=== PATIENT | male | born 1965 | race Caucasian/White ===

== ENCOUNTER 2016-07-16 17:32 | Emergency (ER) | payer BC ==
[2016-07-16] MEDS ORDERED: HYDROmorphone 1 MG/ML Syringe IVPUSH ONE ×2 (17:54→18:17)
[2016-07-16] MEDS ORDERED: Sodium Chloride 0.9% 10 ML Syringe FLUSH PRN (17:54)
--- NOTE | 2016-07-16 17:55 | EDM.PDOC ---
ED HPI GENERAL MEDICAL PROBLEM - General Chief Complaint: Lower Extremity Injury/Pain Stated Complaint: Left leg pain Time Seen by Provider: 07/16/16 17:45 Source of Information: Reports: Patient, RN Notes Reviewed History Limitations: Reports: No Limitations - History of Present Illness INITIAL COMMENTS - FREE TEXT/NARRATIVE: 51 year old male presents to the ED with sudden onset of severe left calf pain that came on suddenly about 45-60 minutes prior to arrival. His left foot is pale and cold. This is a recurrent problem for him. His last episode was in January of 2016 and the patient says "They saved my leg by 10 minutes." His CV surgeon is Dr. Morrow. Patient has a history of PVD and continues to smoke cigarettes. Left Lower Leg Pain Score (Numeric/FACES): 10 - Related Data Allergies Allergy/AdvReac Type Severity Reaction Status Date / Time amoxicillin Allergy Hives Verified 07/16/16 17:47 venom-honey bee Allergy Anaphylactic Verified 07/16/16 17:47 [bee venom (honey bee)] Shock Home Meds: Home Meds Chlorthalidone 25 mg PO DAILY 01/28/15 [History] Cyclobenzaprine [Flexeril] 10 mg PO DAILY PRN 01/28/15 [History] Enalapril [Vasotec] 40 mg PO DAILY 01/28/15 [History] FLUoxetine [PROzac] 40 mg PO DAILY 01/28/15 [History] Clopidogrel [Plavix] 75 mg PO DAILY 03/22/15 [History] oxyCODONE HCl/Acetaminophen [oxyCODONE-Acetaminophen 5-325] 1 tab PO Q6HR PRN [History] Past Medical History Cardiovascular History: Reports: Blood Clots/VTE/DVT, Hypertension, Other (See Below) Other Cardiovascular History: arterial blood clot to the left leg in January Musculoskeletal History: Reports: Other (See Below) Other Musculoskeletal History: left shoulder pain Psychiatric History: Reports: Anxiety Other Endocrine/Metabolic History: pt states that he is borderline diabetic - Infectious Disease History Infectious Disease History: Reports: Chicken Pox, Measles - Past Surgical History Cardiovascular Surgical History: Reports: Other (See Below) Other Cardiovascular Surgeries/Procedures: filter Social & Family History - Tobacco Use Smoking Status *Q: Former Smoker Years of Tobacco use: 30 Packs/Tins Daily: 1 Used Tobacco, but Quit: Yes Month Tobacco Last Used: 2014 - Caffeine Use Caffeine Use: Reports: None - Recreational Drug Use Recreational Drug Use: No ED ROS GENERAL - Review of Systems Review Of Systems: See Below Respiratory: Denies: Shortness of Breath Cardiovascular: Reports: Other (pulseless left leg). Denies: Chest Pain Musculoskeletal: Reports: Leg Pain Skin: Reports: Pallor ED EXAM, GENERAL - Physical Exam Exam: See Below Exam Limited By: No Limitations General Appearance: Alert, WD/WN, Anxious, Severe Distress Respiratory/Chest: No Respiratory Distress, Lungs Clear Cardiovascular: Tachycardia, Other (pale, cold, pulseless left lower leg. pedal pulses are not present by doppler) Extremities: Leg Pain, Pallor Course - Vital Signs Last Recorded V/S: Last Vital Signs Temp 96.4 F 07/16/16 17:40 Pulse 110 H 07/16/16 17:40 Resp 35 H 07/16/16 17:40 BP 166/126 H 07/16/16 17:40 Pulse Ox 100 07/16/16 17:40 - Orders/Labs/Meds Orders: Active Orders 24 hr Category Date Time Status Peripheral IV Care [RC] . DIRECTED Care 07/16/16 17:55 Active Heparin Sodium/D5W [Heparin 25,000 Units in D5W 500 ML] Med 07/16/16 18:15 Active 25,000 units in 500 ml IV TITRATE Sodium Chloride 0.9% [Saline Flush] Med 07/16/16 17:54 Active 10 ml FLUSH ASDIRECTED PRN Peripheral IV Insertion Adult [OM.PC] Stat Oth 07/16/16 17:54 Ordered Medication Orders Heparin Sodium/Dextrose (Heparin 25,000 Units In D5w 500 Ml) 25,000 units in 500 mls @ 20 mls/hr IV TITRATE GANGA; 1,000 UNITS/HR PRN Reason: Protocol Sodium Chloride (Saline Flush) 10 ml FLUSH ASDIRECTED PRN PRN Reason: Keep Vein Open Last Admin: 07/16/16 18:04 Dose: 10 ml Labs: Laboratory Tests 07/16/16 07/16/16 07/16/16 Range/Units 18:00 18:00 18:00 WBC 11.40 H (4.23-9.07) K/mm3 RBC 4.97 (4.63-6.08) M/mm3 Hgb 17.0 (13.7-17.5) gm/L Hct 43.7 (40.1-51.0) % MCV 87.9 (79.0-92.2) fl MCH 34.2 H (25.7-32.2) pg MCHC 38.9 H (32.2-35.5) g/dl RDW Std Deviation 37.9 (35.1-43.9) fL Plt Count 311 (163-337) K/mm3 MPV 10.1 (9.4-12.3) fl Neut % (Auto) 60.5 (34.0-67.9) % Lymph % (Auto) 28.9 (21.8-53.1) % [place] % (Auto) 7.8 (5.3-12.2) % Eos % (Auto) 1.5 (0.8-7.0) Baso % (Auto) 1.0 (0.1-1.2) % Neut # (Auto) 6.91 H (1.78-5.38) K/mm3 Lymph # (Auto) 3.29 (1.32-3.57) K/mm3 [place] # (Auto) 0.89 H (0.30-0.82) K/mm3 Eos # (Auto) 0.17 (0.04-0.54) K/mm3 Baso # (Auto) 0.11 H (0.01-0.08) K/mm3 Manual Slide Review Normal smear PT 11.3 (8.0-13.0) SECONDS INR 1.03 APTT 27 (22-36) SECONDS Meds: Medications Generic Name Dose Route Start Last Admin Trade Name Freq PRN Reason Stop Dose Admin Heparin Sodium/Dextrose 25,000 units in 500 mls @ 20 mls/hr 07/16/16 18:15 Heparin 25,000 Units In D5w 500 Ml IV TITRATE GANGA Protocol 1,000 UNITS/HR Sodium Chloride 10 ml 07/16/16 17:54 07/16/16 18:04 Saline Flush FLUSH 10 ml ASDIRECTED PRN Administration Keep Vein Open Discontinued Medications Generic Name Dose Route Start Last Admin Trade Name Freq PRN Reason Stop Dose Admin Heparin Sodium (Porcine) 5,000 units 07/16/16 18:22 07/16/16 18:23 Heparin Sodium IVPUSH 07/16/16 18:23 5,000 units ONETIME ONE Administration Heparin Sodium (Porcine) Confirm 07/16/16 18:24 07/16/16 18:29 Heparin Sodium Administered 07/16/16 18:25 Not Given Dose 5,000 units .ROUTE .STK-MED ONE Hydromorphone HCl 1 mg 07/16/16 17:54 07/16/16 18:03 Dilaudid IVPUSH 07/16/16 17:55 1 mg ONETIME ONE Administration Hydromorphone HCl 1 mg 07/16/16 18:17 07/16/16 18:22 Dilaudid IVPUSH 07/16/16 18:18 1 mg ONETIME ONE Administration - Re-Assessments/Exams Free Text/Narrative Re-Assessment/Exam: [address] [facility]. I spoke to Dr. Hernandez CV surgeon delinquency prevention officer for Dr. Morrow. He would like him sent through the ED. I then spoke to Dr. Escobar who has accepted patient. Dr. Escobar recommends we initiate heparin. Spoke to Dr. Padilla who agrees. Will start with 5000unit bolus then 1000 u/hr infusion. A second IV will be placed. Pain has been treated with Dilaudid. [facility] also notified interventional radiology team. [email or web address] was called but they do not have a crew available. [facility] flight crew was then called. They will be here promptly to transfer the patient. Departure - Departure Time of Disposition: 18:26 Disposition: DC/Tfer to [facility] 02 Reason for Transfer *Q: Primary PCI Indicated Condition: serious Clinical Impression: Peripheral vascular disease, Left leg pain, Absent pulse in lower extremity Referrals: Aleksandar De Anda MD [Primary Care Provider] - Forms: ED Department Discharge - My Orders Last 24 Hours: My Active Orders 07/16/16 17:54 Sodium Chloride 0.9% [Saline Flush] 10 ml FLUSH ASDIRECTED PRN Peripheral IV Insertion Adult [OM.PC] Stat 07/16/16 17:55 Peripheral IV Care [RC] . DIRECTED 07/16/16 18:15 Heparin Sodium/D5W [Heparin 25,000 Units in D5W 500 ML] 25,000 units in 500 ml IV TITRATE - Assessment/Plan Last 24 Hours: My Active Orders 07/16/16 17:54 Sodium Chloride 0.9% [Saline Flush] 10 ml FLUSH ASDIRECTED PRN Peripheral IV Insertion Adult [OM.PC] Stat 07/16/16 17:55 Peripheral IV Care [RC] . DIRECTED 07/16/16 18:15 Heparin Sodium/D5W [Heparin 25,000 Units in D5W 500 ML] 25,000 units in 500 ml IV TITRATE
[2016-07-16] MEDS ORDERED: Heparin Sodium/D5W 25,000 UNITS/500 ML BAG IV SCH (18:15)
[2016-07-16] MEDS ORDERED: Heparin Sodium 5,000 Units/ML Vial IVPUSH ONE (18:22)
[2016-07-16] MEDS ORDERED: Heparin Sodium 5,000 Units/ML Vial ONE (18:24)
[2016-07-16 19:12] VITALS: BP 173/110
== END 2016-07-16 18:50 ==
LOC: JD.ED 17:32
DX: I73.9 Peripheral vascular disease, unspecified (principal); I10 Essential (primary) hypertension; F41.9 Anxiety disorder, unspecified; R09.89 Other specified symptoms and signs involving the circulatory and respiratory systems; Z88.1 Allergy status to other antibiotic agents; Z79.899 Other long term (current) drug therapy; Z87.891 Personal history of nicotine dependence
CPT/HCPCS: 36415; 85025; 85610; 85730; 96365; 96375; 99285; J1170; J1644; J7050; 99284

== ENCOUNTER 2017-06-15 21:05 | Emergency (ER) | payer BC ==
[2017-06-15 21:22] VITALS: BP 137/94
--- NOTE | 2017-06-15 21:30 | EDM.PDOC ---
ED HPI GENERAL MEDICAL PROBLEM - General Chief Complaint: Cardiovascular Problem Stated Complaint: AMBULANCE Time Seen by Provider: 06/15/17 21:20 Source of Information: Reports: Patient History Limitations: Reports: No Limitations - History of Present Illness INITIAL COMMENTS - FREE TEXT/NARRATIVE: This is a 52-year-old male. He states that when he got out of the shower about 810 this evening he started having pain in his left lower extremity. He noted that it began to get cold and bluish tinged so he comes to the ER for evaluation. He has a history of DVTs and he thinks arterial insufficiency in the past. He's also had a compartment syndrome in his left lower extremity as well. He denies any shortness of breath he denies any fever or chills he denies any other acute symptoms just complains of pain in his left lower extremity. When he arrived it does appear to be mottled and he does have cyanotic toes. We attempted to do Dopplers on his foot and he has no pedal or posterior tibial pulse he does have a popliteal pulse. The right lower extremities denies any problems presently. The patient normally takes Plavix and aspirin daily but he's been off of it for one week now because her going to have to do surgery on his shoulder. 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 Left Feet Pain Score (Numeric/FACES): 5 - Related Data Allergies Allergy/AdvReac Type Severity Reaction Status Date / Time amoxicillin Allergy Hives Verified 06/15/17 21:22 Home Meds: Home Meds Aspirin 81 mg PO DAILY 06/15/17 [History] Clopidogrel [Plavix] 75 mg PO DAILY 06/15/17 [History] Cyclobenzaprine [Flexeril] 10 mg PO TID PRN 06/15/17 [History] Dulaglutide [Trulicity] 1.5 mg SQ WEEKLY 06/15/17 [History] Enalapril [Vasotec] 20 mg PO DAILY 06/15/17 [History] FLUoxetine HCl [Prozac] 20 mg PO DAILY 06/15/17 [History] Hydrochlorothiazide 25 mg PO DAILY 06/15/17 [History] atorvaSTATin [Lipitor] 20 mg PO BEDTIME 06/15/17 [History] metFORMIN HCl [Metformin HCl ER] 1,000 mg PO BID 06/15/17 [History] oxyCODONE [Oxycodone HCl] 10 mg PO Q4H PRN 06/15/17 [History] ED ROS GENERAL - Review of Systems Review Of Systems: See Below Constitutional: Denies: Fever, Chills HEENT: Reports: No Symptoms Respiratory: Denies: Shortness of Breath, Cough Cardiovascular: Denies: Chest Pain Endocrine: Reports: No Symptoms GI/Abdominal: Reports: No Symptoms : Reports: No Symptoms Musculoskeletal: Reports: Other (As per history of present illness) Skin: Reports: Cyanosis, Mottled, Pallor Neurological: Reports: Paresthesia Psychiatric: Reports: No Symptoms Hematologic/Lymphatic: Reports: No Symptoms ED EXAM, GENERAL - Physical Exam Exam: See Below Exam Limited By: No Limitations General Appearance: Alert, WD/WN, Mild Distress Eye Exam: Bilateral Eye: Normal Inspection Ears: Normal External Exam Nose: Normal Inspection Throat/Mouth: Normal Inspection, Normal Lips, Normal Voice, No Airway Compromise Head: Normocephalic Neck: Supple Respiratory/Chest: No Respiratory Distress, Lungs Clear, Normal Breath Sounds Cardiovascular: Regular Rate, Rhythm, No Murmur GI/Abdominal: Soft, Non-Tender Back Exam: Other (He denies any back symptoms) Extremities: Other (The left lower leg about mid calf down appeared to have some mottling and it's very cool compared to the right lower extremity, the toes are cyanotic with a capillary refill of greater than 7 seconds, by Doppler I cannot obtain any pedal pulse or posterior tibial pulse, by Doppler I do pickle solution maker a popliteal pulse) Neurological: Alert, Oriented, Other (Tingling and mild paresthesias of his left lower leg) Psychiatric: Normal Affect, Normal Mood Skin Exam: Other (E right lower extremity is much warmer though it is also cool but much warmer than the left lower extremity and there is no mottling there's no cyanosis noted, he does have a pedal pulse and posterior tibial pulses of the right lower extremity) Course - Vital Signs Last Recorded V/S: Last Vital Signs Temp 98.9 F 06/15/17 21:17 Pulse 90 06/15/17 21:17 Resp 11 L 06/15/17 21:17 BP 137/94 H 06/15/17 21:17 Pulse Ox 96 06/15/17 21:17 - Orders/Labs/Meds Orders: Active Orders 24 hr Category Date Time Status CV Lower Ext Arterial Duplex [US] Stat Exams 06/15/17 21:20 Taken Labs: Laboratory Tests 06/15/17 06/15/17 06/15/17 Range/Units 21:40 21:40 21:40 WBC 8.81 (4.23-9.07) K/mm3 RBC 4.59 L (4.63-6.08) M/mm3 Hgb 14.5 (13.7-17.5) gm/L Hct 41.3 (40.1-51.0) % MCV 90.0 (79.0-92.2) fl MCH 31.6 (25.7-32.2) pg MCHC 35.1 (32.2-35.5) g/dl RDW Std Deviation 39.8 (35.1-43.9) fL Plt Count 229 (163-337) K/mm3 MPV 9.6 (9.4-12.3) fl Neut % (Auto) 72.0 H (34.0-67.9) % Lymph % (Auto) 18.2 L (21.8-53.1) % [place] % (Auto) 6.1 (5.3-12.2) % Eos % (Auto) 2.6 (0.8-7.0) Baso % (Auto) 0.9 (0.1-1.2) % Neut # (Auto) 6.34 H (1.78-5.38) K/mm3 Lymph # (Auto) 1.60 (1.32-3.57) K/mm3 [place] # (Auto) 0.54 (0.30-0.82) K/mm3 Eos # (Auto) 0.23 (0.04-0.54) K/mm3 Baso # (Auto) 0.08 (0.01-0.08) K/mm3 PT 11.4 (9.5-12.1) SECONDS INR 1.05 Sodium 137 (136-145) mEq/L Potassium 3.5 (3.5-5.1) mEq/L Chloride 100 (98-107) mEq/L Carbon Dioxide 28 (21-32) mEq/L Anion Gap 12.5 (5-15) BUN 16 (7-18) mg/dL Creatinine 1.0 (0.7-1.3) mg/dL Est Cr Clr Drug Dosing 85.50 mL/min Estimated GFR (MDRD) > 60 (>60) mL/min BUN/Creatinine Ratio 16.0 (14-18) Glucose 150 H (74-106) mg/dL Calcium 9.3 (8.5-10.1) mg/dL Total Bilirubin 0.3 (0.2-1.0) mg/dL AST 31 (15-37) U/L ALT 55 (16-63) U/L Alkaline Phosphatase 48 (46-116) U/L Total Protein 7.2 (6.4-8.2) g/dl Albumin 3.8 (3.4-5.0) g/dl Globulin 3.4 gm/dL Albumin/Globulin Ratio 1.1 (1-2) - Radiology Interpretation Free Text/Narrative:: The Doppler study showed no flow in the proximal superficial femoral artery, in the distal superficial femoral artery flow reconstituted but is markedly dampened waveform. In the left popliteal artery there is also a very dampened waveform noted. Due to the compromise quality of the examination the radiologist could not tell about the arteries in the left calf and left foot. I spoke to the emergency room physician Dr. Stephens at [facility] and he accepts the patient in transport for further evaluation and treatment. He will contact the radiologist goal interventional list for a possible angiography of that left lower extremity. In the meantime we will load him up with [address] and place him on 1000 units per hour drip. I did speak to the patient regarding the transfer and he is good with this. Departure - Departure Time of Disposition: 01:10 Disposition: DC/Tfer to Acute Hospital 02 Reason for Transfer *Q: Other (Patient needs CT angiography and a vascular surgeon or a radiological urologic surgeon) Condition: Fair Clinical Impression: Severe arterial insufficiency of left lower extremity Forms: ED Department Discharge Additional Instructions: Patient will be transported to [facility] with Dr. Stephens the accepting physician. ED Communication - ED Communication Date/Time Date: 06/16/17 Time Called: 01:11 - Discussed Case With (1) Discussed Case With (1): Other Person/s Notified (1): Dr. Stephens (He accepts the patient in transport) - My Orders Last 24 Hours: My Active Orders 06/15/17 21:20 CV Lower Ext Arterial Duplex [US] Stat - Assessment/Plan Last 24 Hours: My Active Orders 06/15/17 21:20 CV Lower Ext Arterial Duplex [US] Stat
[2017-06-16] MEDS ORDERED: Heparin Sodium 5,000 Units/ML Vial IVPUSH ONE (01:13)
[2017-06-16] MEDS ORDERED: Heparin Sodium/D5W 25,000 UNITS/500 ML BAG IV SCH ×2 (01:15→01:30)
[2017-06-16] MEDS ORDERED: HYDROmorphone 1 MG/ML Syringe IVPUSH ONE (01:21)
--- NOTE | 2017-06-17 12:54 | US ---
Left lower extremity arterial ultrasound: Duplex and color flow imaging was obtained of the left common femoral, superficial, popliteal, posterior tibial and peroneal arteries. Technologist note: Suboptimal color and Doppler images of arteries within calf Lack of color flow is identified within the proximal superficial femoral artery. Difficult to exclude arterial occlusion. Diminished arterial velocity is seen within the posterior and peroneal arteries which is compatible with proximal stenosis. Popliteal artery also shows diminished velocity measurements felt compatible with proximal stenosis. No other occlusions are seen. Impression: 1. Probable occlusion of the proximal left superficial femoral artery. Probable areas of multiple stenosis as noted above. CT angiography could be considered if patient's creatinine is satisfactory. Diagnostic code #3 Agree with preliminary report issued by [facility] ([facility] preliminary report dictated on 06/16/17, 1:45 AM Central Time)
== END 2017-06-16 02:26 ==
LOC: MERGE 21:05 → JD.ED 21:05
DX: I73.9 Peripheral vascular disease, unspecified (principal); Z88.1 Allergy status to other antibiotic agents; Z79.82 Long term (current) use of aspirin; Z79.899 Other long term (current) drug therapy
CPT/HCPCS: 36415; 80053; 85025; 85610; 85730; 93925; 96365; 96375; 96376; 99285; J1170; J1644; 99284

== ENCOUNTER 2023-07-29 19:05 | Emergency (ER) | payer BC, OTHER ==
[2023-07-29] MEDS ORDERED: Sodium Chloride 0.9% 10 ML Syringe FLUSH PRN (19:24)
[2023-07-29 19:38] LABS: BASOPHILS ABSOLUTE AUTO 0.1 K/mm3 (0.0-0.2); BASOPHILS PERCENT AUTO 0.7 % (0.0-1.0); EOSINOPHILS ABSOLUTE AUTO 0.1 K/mm3 (0.0-0.4); EOSINOPHILS PERCENT AUTO 1.1 % (0.0-6.0); HEMATOCRIT 40.8 % (42.0-52.0); HEMOGLOBIN 14.1 gm/dl (14.0-18.0); IMMATURE GRAN ABSOLUTE AUTO 0.03 K/mm3 (0.00-0.05); IMMATURE GRAN PERCENT AUTO 0.4 % (0.0-0.4); LYMPHOCYTES ABSOLUTE AUTO 0.4 K/mm3 (1.0-4.8); LYMPHOCYTES PERCENT AUTO 6.1 % (24.0-44.0); MEAN CORPUSCULAR HEMOGLOBIN 28.4 pg (28.0-32.0); MEAN CORPUSCULAR HGB CONC 34.6 g/dl (32.0-36.0); MEAN CORPUSCULAR VOLUME 82.3 fl (83.0-99.0); MEAN PLATELET VOLUME 9.8 fl (9.4-12.4); MONOCYTES ABSOLUTE AUTO 0.4 K/mm3 (0.0-0.8); MONOCYTES PERCENT AUTO 5.2 % (0.0-8.0); NEUTROPHILS ABSOLUTE AUTO 6.2 K/mm3 (1.8-7.7); NEUTROPHILS PERCENT AUTO 86.5 % (41.0-71.0); PLATELET COUNT,PLT 168 K/mm3 (150-400); RED BLOOD CELL COUNT 4.96 M/mm3 (4.52-5.90); WHITE BLOOD CELL COUNT,WBC 7.18 K/mm3 (3.9-11.3)
[2023-07-29 19:53] LABS: ANION GAP 14.4 (5-15); BUN/CREATININE RATIO 8.5 (14-18); CREATININE 1.3 mg/dL (0.7-1.3); EST CRCL DRUG DOSING (CG) 61.38 mL/min; POTASSIUM,K 3.4 mEq/L (3.5-5.1)
[2023-07-29 19:56] LABS: INR 1.09; PROTHROMBIN TIME 11.6 SECONDS (9.7-12.0)
[2023-07-29 19:57] LABS: PTT,PARTIAL THROMBOPLSTIN TIME 30.8 SECONDS (21.7-31.4)
[2023-07-29] MEDS: Sodium Chloride 0.9% 1,000 ML IV SCH (19:58)
[2023-07-29] MEDS: Ondansetron 4 MG/2 ML SDV IVPUSH ONE (19:59)
[2023-07-29] MEDS: Morphine 4 MG/ML Syringe IVPUSH ONE ×3 (20:01→22:06)
[2023-07-29] MEDS: Iopamidol 755 Mg/ML 100 ML Bottle IVPUSH ONE (20:03)
[2023-07-29 20:07] LABS: D-DIMER QUANTITATIVE > 35.20 mg/L (0.19-0.50)
[2023-07-29] MEDS ORDERED: Sodium Chloride 0.9% 100 ML IV SCH (20:15)
[2023-07-29] MEDS: Sodium Chloride 0.9% 10 ML Syringe FLUSH PRN (20:25)
[2023-07-29 22:17] VITALS: BP 167/98; PULSE 85
[2023-07-29] MEDS: Heparin Sodium 5,000 Units/ML Vial IVPUSH ONE (22:21)
[2023-07-29] MEDS: Heparin Sodium/D5W 25,000 UNITS/500 ML BAG IV SCH (22:24)
== END 2023-07-29 22:41 ==
LOC: JD.ED 19:05
DX: I74.3 Embolism and thrombosis of arteries of the lower extremities (principal); I10 Essential (primary) hypertension; E78.00 Pure hypercholesterolemia, unspecified; E11.9 Type 2 diabetes mellitus without complications; F17.210 Nicotine dependence, cigarettes, uncomplicated; Z88.0 Allergy status to penicillin; Z91.030 Bee allergy status; Z79.82 Long term (current) use of aspirin; Z79.899 Other long term (current) drug therapy
CPT/HCPCS: 36415; 73706; 80048; 85025; 85379; 85610; 85730; 96361; 96365; 96375; 96376; 99285; J1644; J2270; J2405; J3490; J7030; Q9967